=== PATIENT | male | born 1940 | race Caucasian/White ===

== ENCOUNTER 2020-07-29 20:30 | Emergency (ER) | payer BC ==
--- NOTE | 2020-07-29 20:43 | EDM.PDOC ---
ED HPI GENERAL MEDICAL PROBLEM - General Chief Complaint: Genitourinary Problem Stated Complaint: CATHETER ISSUES Time Seen by Provider: 07/29/20 20:42 Source of Information: Reports: Patient, Old Records History Limitations: Reports: No Limitations - History of Present Illness INITIAL COMMENTS - FREE TEXT/NARRATIVE: Eleno is a 79-year-old male presenting to the ED for evaluation of urinary retention. 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 He was seen in [place] by his urologist today who took his Wilson catheter out as a trial to see if he was able to void without it. The patient was last able to void around 1430 hrs. today but has been unable to pass any urine since. He comes in quite uncomfortable with bladder distention. Due to his recent surgery he has a large hematoma in the scrotum. He denies any fever, chills, nausea or vomiting, diarrhea or constipation. Other than being unable to void, he denies any urgency or frequency. Bladder Pain Score (Numeric/FACES): 2 - Related Data Allergies Allergy/AdvReac Type Severity Reaction Status Date / Time No Known Allergies Allergy Verified 07/29/20 20:47 Home Meds: Home Meds Enoxaparin [Lovenox] 40 mg SUBCUT DAILY 07/29/20 [History] ED ROS GENERAL - Review of Systems Review Of Systems: See Below Constitutional: Reports: No Symptoms HEENT: Reports: No Symptoms Respiratory: Reports: No Symptoms Cardiovascular: Reports: No Symptoms Endocrine: Reports: No Symptoms GI/Abdominal: Reports: No Symptoms : Reports: Urinary Retention, Other (Large scrotal hematoma due to recent surgery) Musculoskeletal: Reports: No Symptoms Skin: Reports: No Symptoms Neurological: Reports: No Symptoms Psychiatric: Reports: No Symptoms Hematologic/Lymphatic: Reports: No Symptoms Immunologic: Reports: No Symptoms ED EXAM, RENAL/ - Physical Exam Exam: See Below Exam Limited By: No Limitations General Appearance: Alert, Mild Distress Head: Atraumatic, Normocephalic Respiratory/Chest: No Respiratory Distress, Lungs Clear, Normal Breath Sounds Cardiovascular: Normal Peripheral Pulses, Regular Rate, Rhythm, No Murmur GI/Abdominal: Normal Bowel Sounds, Soft, Non-Tender (Male) Exam: Circumcised, Scrotal Swelling, Scrotum Tenderness (L), Scrotum Tenderness (R), Other (Very large scrotal hematoma) Back Exam: Normal Inspection, Full Range of Motion Neurological: Alert, Oriented, Normal Cognition, No Motor/Sensory Deficits Psychiatric: Normal Affect, Normal Mood Skin Exam: Warm, Dry, Intact, Wound/Incision (Central abdominal incision is clean, dry, intact.) Course - Vital Signs Last Recorded V/S: Last Vital Signs Temp 36.8 C 07/29/20 20:59 Pulse 86 07/29/20 20:59 Resp 16 07/29/20 20:59 BP 128/88 07/29/20 20:59 Pulse Ox 98 07/29/20 20:59 - Orders/Labs/Meds Orders: Active Orders 24 hr Category Date Time Status Insert Urinary Catheter [OM.PC] Q24H Care 07/29/20 20:45 Ordered Urinary Catheter Assessment [RC] ASDIRECTED Care 07/29/20 20:42 Active Meds: Medications Discontinued Medications Generic Name Dose Route Start Last Admin Trade Name Freq PRN Reason Stop Dose Admin Lidocaine HCl 10 ml 07/29/20 21:03 07/29/20 21:19 Xylocaine 2% Jelly MUCMEM 07/29/20 21:04 10 ml ONETIME ONE Administration - Re-Assessments/Exams Free Text/Narrative Re-Assessment/Exam: 07/29/20 21:42 a 16 Romanian catheter was placed into the bladder successfully with good urine output. Patient experienced relief of his urinary retention. Care of the catheter was discussed. At this time, the patient is suitable for discharge home. He is scheduled to follow-up with his primary care provider tomorrow. Departure - Departure Time of Disposition: 21:25 Disposition: Home, Self-Care 01 Clinical Impression: Acute urinary retention - Discharge Information Instructions: Indwelling Urinary Catheter Care, Adult Referrals: PCP,None [Primary Care Provider] - Forms: ED Department Discharge Care Plan Goals: Follow-up with your primary care provider or urologist as needed. Please maintain the Wilson catheter. Return to the ED should you have any difficulty emptying your bladder or the catheter is no longer functioning properly. Sepsis Event Note (ED) - Focused Exam Vital Signs: Vital Signs Temp Pulse Resp BP Pulse Ox 07/29/20 20:59 36.8 C 86 16 128/88 98 - Problem List & Annotations (1) Acute urinary retention SNOMED Code(s): 917468823 Code(s): R33.8 - OTHER RETENTION OF URINE Status: Acute Priority: Medium Current Visit: Yes - Problem List Review Problem List Initiated/Reviewed/Updated: Yes - My Orders Last 24 Hours: My Active Orders 07/29/20 20:42 Urinary Catheter Assessment [RC] ASDIRECTED 07/29/20 20:45 Insert Urinary Catheter [OM.PC] Q24H - Assessment/Plan Last 24 Hours: My Active Orders 07/29/20 20:42 Urinary Catheter Assessment [RC] ASDIRECTED 07/29/20 20:45 Insert Urinary Catheter [OM.PC] Q24H
[2020-07-29 21:00] VITALS: BP 128/88; PULSE 86
[2020-07-29] MEDS ORDERED: Lidocaine 2% Jelly 10 ML Urojet MUCMEM ONE (21:03)
== END 2020-07-29 21:48 | disposition home or self-care (01) ==
LOC: JP.ED 20:30
DX: R33.9 Retention of urine, unspecified (principal); N99.840 Postprocedural hematoma of a genitourinary system organ or structure following a genitourinary system procedure
CPT/HCPCS: 51702; 99283

== ENCOUNTER 2021-03-04 14:54 | Emergency (ER) | payer BC ==
[2021-03-04 15:11] VITALS: PULSE 63
[2021-03-04 15:51] VITALS: BP 128/79
--- NOTE | 2021-03-04 16:32 | EDM.PDOC ---
ED HPI GENERAL MEDICAL PROBLEM - General Chief Complaint: General Stated Complaint: HIGH POTASIUM PER DR Time Seen by Provider: 03/04/21 16:33 Source of Information: Reports: Patient, Old Records History Limitations: Reports: No Limitations - History of Present Illness INITIAL COMMENTS - FREE TEXT/NARRATIVE: pt has had a higher k and today it was over 6. He states that they did have a harder time drawing him at the clinic than usual. He has not been taking fluids as well as usual also. Onset: Gradual Location: Reports: Other (pt has one kidney and has a history of ca of the kidney. ) Associated Symptoms: Reports: No Other Symptoms, Other (pt does feel well. ) - Related Data Allergies Allergy/AdvReac Type Severity Reaction Status Date / Time No Known Allergies Allergy Verified 03/04/21 15:17 Home Meds: Home Meds [place]-3/DHA/Epa/Fish Oil [[place]-3 Fish Oil 1,000 MG Sfgl] 1,000 mg PO DAILY 03/04/21 [History] Past Medical History HEENT History: Reports: Hard of Hearing Psychiatric History: Reports: None Hematologic History: Reports: Blood Transfusion(s) Oncologic (Cancer) History: Reports: Bladder, Metastatic, Other (See Below) Other Oncologic History: L kidney and ureter - Infectious Disease History Infectious Disease History: Reports: Chicken Pox, Measles, Mumps - Past Surgical History HEENT Surgical History: Reports: Tonsillectomy Male Surgical History: Reports: Nephrectomy, Other (See Below) Other Male Surgeries/Procedures: l nephrectomy with uereter removal Social & Family History - Tobacco Use Tobacco Use Status *Q: Never Tobacco User - Caffeine Use Caffeine Use: Reports: Coffee - Recreational Drug Use Recreational Drug Use: No ED ROS GENERAL - Review of Systems Review Of Systems: See Below Constitutional: Reports: No Symptoms HEENT: Reports: No Symptoms Respiratory: Reports: No Symptoms Cardiovascular: Reports: No Symptoms Endocrine: Reports: No Symptoms GI/Abdominal: Reports: No Symptoms : Reports: Other (pt admits ) Musculoskeletal: Reports: No Symptoms Skin: Reports: No Symptoms Neurological: Reports: No Symptoms Psychiatric: Reports: No Symptoms ED EXAM, GENERAL - Physical Exam Exam: See Below Free Text/Narrative:: pt wasfound to have a k of greatr than 6. Pt feels well and has not had problems. Exam Limited By: No Limitations General Appearance: Alert Ears: Normal TMs Nose: Normal Inspection Throat/Mouth: Normal Inspection Head: Atraumatic Neck: Normal Inspection Respiratory/Chest: No Respiratory Distress Cardiovascular: Regular Rate, Rhythm GI/Abdominal: Soft, Non-Tender (Male) Exam: Deferred Rectal (Males) Exam: Deferred Back Exam: Normal Inspection Extremities: Normal Inspection Neurological: Alert, Oriented, Normal Cognition Psychiatric: Anxious Course - Vital Signs Last Recorded V/S: Last Vital Signs Temp 36.5 C 03/04/21 15:16 Pulse 63 03/04/21 15:51 Resp 18 03/04/21 15:16 BP 128/79 03/04/21 15:51 Pulse Ox 98 03/04/21 15:51 - Orders/Labs/Meds Orders: Active Orders 24 hr Category Date Time Status UA W/MICROSCOPIC [URIN] Urgent Lab 03/04/21 15:45 Ordered Labs: Laboratory Tests 03/04/21 03/04/21 Range/Units 15:45 16:22 Sodium 134 L (140-148) mmol/L Potassium 4.8 (3.6-5.2) mmol/L Chloride 102 (100-108) mmol/L Carbon Dioxide 25 (21-32) mmol/L Anion Gap 11.8 (5.0-14.0) mmol/L BUN 34 H (7-18) mg/dL Creatinine 1.9 H D (0.8-1.3) mg/dL Est Cr Clr Drug Dosing 16.14 mL/min Estimated GFR (MDRD) 34 L (>60) Glucose 107 H (74-106) mg/dL Calcium 8.0 L (8.5-10.1) mg/dL Urine Color Cancelled Urine Appearance Cancelled Urine pH Cancelled Ur Specific [place] Cancelled Urine Protein Cancelled Urine Glucose (UA) Cancelled Urine Ketones Cancelled Urine Occult Blood Cancelled Urine Nitrite Cancelled Urine Bilirubin Cancelled Urine Urobilinogen Cancelled Ur Leukocyte Esterase Cancelled - Re-Assessments/Exams Free Text/Narrative Re-Assessment/Exam: 03/04/21 16:40 k was repeated and found to be 4.8 He was not treated today but the k should be followed closely. He will push alot of water. Departure - Departure Time of Disposition: 16:31 Disposition: Home, Self-Care 01 Condition: Fair Clinical Impression: Dehydration - Discharge Information Referrals: PCP,None [Primary Care Provider] - Forms: ED Department Discharge Care Plan Goals: push fluids, send a copy of the electrolytes with pt. Sepsis Event Note (ED) - Focused Exam Vital Signs: Vital Signs Temp Pulse Resp BP Pulse Ox 03/04/21 15:51 63 128/79 98 03/04/21 15:16 36.5 C 63 18 129/68 99 03/04/21 15:09 36.5 C 63 18 129/68 99 - My Orders Last 24 Hours: My Active Orders 03/04/21 15:45 UA W/MICROSCOPIC [URIN] Urgent - Assessment/Plan Last 24 Hours: My Active Orders 03/04/21 15:45 UA W/MICROSCOPIC [URIN] Urgent
== END 2021-03-04 17:15 | disposition home or self-care (01) ==
LOC: JP.ED 14:54
DX: E86.0 Dehydration (principal)
CPT/HCPCS: 36415; 80048; 81001; 99283; 99284

== ENCOUNTER 2021-04-04 14:36 | Emergency (ER) | payer BC ==
[2021-04-04 14:50] VITALS: BP 125/77; PULSE 79
--- NOTE | 2021-04-04 15:37 | EDM.PDOC ---
ED HPI GENERAL MEDICAL PROBLEM - General Chief Complaint: Respiratory Problem Stated Complaint: PAIN LEFT SIDE RIBCAGE (LUNG) Time Seen by Provider: 04/04/21 15:20 Source of Information: Reports: Patient, Old Records History Limitations: Reports: No Limitations - History of Present Illness INITIAL COMMENTS - FREE TEXT/NARRATIVE: 80 yo male is being managed by oncology at for metastatic renal CA. He has known liver mets. He went to the clinic today for about 4 d of intermittent low grade fevers managed with acetaminophen and mild dyspnea, especially with exertion. In the local [facility] he was found to have a large L pleural effusion and sent to the ER. A CBC there showed a normal WBC ct of 7.9. Is being treated with Keytruda infusions. Sees Dr. April Amezcua. Onset: Gradual Duration: Day(s):, Getting Worse Location: Reports: Chest Quality: Reports: Other (pain is not reported) Severity: Mild Improves with: Reports: None Worsens with: Reports: Other (time, exertion) Context: Reports: Other (See HPI) Associated Symptoms: Reports: Fever/Chills (? low grade intermittently), Shortness of Breath Treatments AUTHORIZATION MANAGER: Reports: Acetaminophen - Related Data Allergies Allergy/AdvReac Type Severity Reaction Status Date / Time No Known Allergies Allergy Verified 04/04/21 14:53 Home Meds: Home Meds [place]-3/DHA/Epa/Fish Oil [[place]-3 Fish Oil 1,000 MG Sfgl] 1,000 mg PO DAILY 03/04/21 [History] Past Medical History HEENT History: Reports: Hard of Hearing Respiratory History: Reports: Other (See Below) Other Respiratory History: fluid on left lung Genitourinary History: Reports: Other (See Below) Other Genitourinary History: only has right kidney Musculoskeletal History: Reports: Arthritis, Gout Psychiatric History: Reports: None Hematologic History: Reports: Blood Transfusion(s) Oncologic (Cancer) History: Reports: Bladder, Metastatic, Other (See Below) Other Oncologic History: L kidney and ureter - Infectious Disease History Infectious Disease History: Reports: Chicken Pox, Measles, Mumps - Past Surgical History HEENT Surgical History: Reports: Tonsillectomy Respiratory Surgical History: Reports: None Male Surgical History: Reports: Nephrectomy, Other (See Below) Other Male Surgeries/Procedures: l nephrectomy with uereter removal Musculoskeletal Surgical History: Reports: None Oncologic Surgical History: Reports: Other (See Below) Other Oncologic Surgeries/Procedures: left kidney removed. resection wall of bladder Social & Family History - Tobacco Use Tobacco Use Status *Q: Never Tobacco User - Caffeine Use Caffeine Use: Reports: Coffee, Tea - Recreational Drug Use Recreational Drug Use: No ED ROS GENERAL - Review of Systems Review Of Systems: See Below Constitutional: Reports: Fever, Chills HEENT: Reports: No Symptoms Respiratory: Reports: Shortness of Breath Cardiovascular: Reports: No Symptoms GI/Abdominal: Reports: No Symptoms : Reports: No Symptoms Musculoskeletal: Reports: No Symptoms Skin: Reports: No Symptoms ED EXAM, GENERAL - Physical Exam Exam: See Below Exam Limited By: No Limitations General Appearance: Alert, WD/WN, No Apparent Distress Eye Exam: Bilateral Eye: Normal Inspection Ears: Normal External Exam, Normal Canal, Hearing Grossly Normal Ear Exam: Bilateral Ear: Auricle Normal, Canal Normal Nose: Normal Inspection, No Blood Throat/Mouth: Normal Inspection, Normal Lips, Normal Oropharynx, Normal Voice, No Airway Compromise Head: Atraumatic, Normocephalic Neck: Normal Inspection Respiratory/Chest: No Respiratory Distress, Decreased Breath Sounds (lower 2/3 of his L lung is without BS and dull to percussion) Cardiovascular: Regular Rate, Rhythm, No Edema Back Exam: Normal Inspection. No: CVA Tenderness (R), CVA Tenderness (L) Extremities: Normal Inspection, Normal Range of Motion, Non-Tender, No Pedal Edema Neurological: Alert, Oriented, CN II-XII Intact, Normal Cognition, No Motor/Sensory Deficits Psychiatric: Normal Affect, Normal Mood Skin Exam: Warm, Dry, Intact, Normal Color, No Rash Course - Vital Signs Text/Narrative:: Case discussed with [facility] @ 1610h Last Recorded V/S: Last Vital Signs Temp 36.9 C 04/04/21 14:48 Pulse 79 04/04/21 14:48 Resp 18 04/04/21 14:48 BP 125/77 04/04/21 14:48 Pulse Ox 94 L 04/04/21 14:48 - Orders/Labs/Meds Orders: Active Orders 24 hr Category Date Time Status Chest wo Cont [CT] Stat Exams 04/04/21 16:39 Taken - Radiology Interpretation Free Text/Narrative:: Chest CT scan without contrast- IMPRESSION: Large, partially loculated simple left pleural effusion. Consider repeat CT after resolution of effusion to exclude underlying mass or infiltrate. Bilateral gynecomastia. Please note that all CT scans at this facility use dose modulation, iterative reconstruction, and/or weight-based dosing when appropriate to reduce radiation dose to as low as reasonably achievable. Dictated by Arlette Wisdom MD @ 04/04/2021 5:54:[address] Results Date: 04/04/21 Departure - Departure Time of Disposition: 17:59 Disposition: Home, Self-Care 01 Condition: Fair Clinical Impression: Pleural effusion, left Metastatic renal cell carcinoma Qualifiers: Laterality: unspecified laterality Qualified Code(s): C64.9 - Malignant neoplasm of unspecified kidney, except renal pelvis - Discharge Information *PRESCRIPTION DRUG MONITORING PROGRAM REVIEWED*: Not Applicable *COPY OF PRESCRIPTION DRUG MONITORING REPORT IN PATIENT LEANDRO: Not Applicable Referrals: Arlette Castro MD [Primary Care Provider] - Forms: ED Department Discharge Additional Instructions: There was no CT evidence of infection today. If you are clearly running a fever over the weekend you should consider returning for further work up. We are going to need you to return Wednesday for a pleural tap to remove the excess lung fluid. This fluid very likely will return in the not too distant future. Keep or move up your oncology appt if possible. Sepsis Event Note (ED) - Evaluation Sepsis Screening Result: No Definite Risk - Focused Exam Vital Signs: Vital Signs Temp Pulse Resp BP Pulse Ox 04/04/21 14:48 36.9 C 79 18 125/77 94 L - My Orders Last 24 Hours: My Active Orders 04/04/21 16:39 Chest wo Cont [CT] Stat - Assessment/Plan Last 24 Hours: My Active Orders 04/04/21 16:39 Chest wo Cont [CT] Stat
--- NOTE | 2021-04-04 17:55 | CRLCT ---
For Patients: As a result of the Century Cures Act, medical imaging exams and procedure reports are released immediately into your electronic medical record. You may view this report before your referring provider. If you have questions, please contact your health care provider. INDICATION: Left pleural effusion TECHNIQUE: CT chest without contrast. COMPARISON: Chest radiograph from earlier today FINDINGS: Cardiovascular structures: Heart size is normal. Thoracic aorta and main pulmonary artery are normal in caliber. Mediastinum and toribio: No sign of mass or adenopathy. Lungs: Compressive atelectasis in the left lung. Linear scarring or atelectasis in the lateral aspect of the right middle lobe. Pleura and pericardium: Large, partially loculated left pleural effusion measuring 12 Hounsfield units in density. Chest wall and axilla: Bilateral gynecomastia. Upper abdomen: Unremarkable. Bones: No significant findings. No suspicious osseous lesions. IMPRESSION: Large, partially loculated simple left pleural effusion. Consider repeat CT after resolution of effusion to exclude underlying mass or infiltrate. Bilateral gynecomastia. Please note that all CT scans at this facility use dose modulation, iterative reconstruction, and/or weight-based dosing when appropriate to reduce radiation dose to as low as reasonably achievable. Dictated by Arlette Wisdom MD @ 04/04/2021 5:54:17 PM (Electronically Signed)
== END 2021-04-04 18:14 | disposition home or self-care (01) ==
LOC: JP.ED 14:36
DX: C64.9 Malignant neoplasm of unspecified kidney, except renal pelvis (principal); J90 Pleural effusion, not elsewhere classified
CPT/HCPCS: 71250; 99284-25

== ENCOUNTER 2021-10-13 12:36 | Inpatient (IN) | payer MEDICARE, BC ==
[2021-10-13] MEDS ORDERED: Sodium Chloride 0.9% 1,000 ML IV ONE (13:54)
[2021-10-13] MEDS ORDERED: Albuterol 0.083% 2.5 MG/3 ML Neb Soln NEB PRN (13:54)
[2021-10-13] MEDS ORDERED: HYDROmorphone 1 MG/ML Syringe IVPUSH PRN (13:54)
[2021-10-13] MEDS ORDERED: LORazepam 2 MG/ML SDV IVPUSH PRN (13:54)
[2021-10-13] MEDS ORDERED: Ondansetron 4 MG/2 ML SDV IV PRN (13:54)
[2021-10-13] MEDS ORDERED: HYDROmorphone 0.5 MG/0.5 ML Syringe IVPUSH PRN (14:02)
[2021-10-13] MEDS ORDERED: Dextrose 5%-Lactated Ringers 1,000 ML IV SCH (14:30)
[2021-10-13] MEDS: Pantoprazole 40 MG Vial IV SCH (16:20)
[2021-10-13 16:49] LABS: CORONAVIRUS COVID-19 NAA NEGATIVE (NEGATIVE)
[2021-10-13] MEDS: Acetaminophen 325 MG Tab PO PRN ×3 (16:54→22:33)
[2021-10-14] MEDS: Melatonin 3 MG Tab PO PRN ×2 (00:06→20:56)
[2021-10-14] MEDS: Piperacillin/Tazobactam/Dext 2.25 GM in Premix Bag 1 BAG IV SCH ×2 (10:21→17:28)
[2021-10-14] MEDS: Pantoprazole 40 MG Vial IV SCH (15:48)
[2021-10-14] MEDS: Acetaminophen 325 MG Tab PO PRN ×2 (19:32→23:26)
[2021-10-15] MEDS: Piperacillin/Tazobactam/Dext 2.25 GM in Premix Bag 1 BAG IV SCH ×3 (00:52→16:35)
[2021-10-15] MEDS: oxyCODONE 5 MG Tab PO PRN ×3 (05:54→22:46)
[2021-10-15] MEDS: Ondansetron 4 MG Tab.DIS PO PRN (16:21)
[2021-10-15] MEDS: Dextrose 5%-Lactated Ringers 1,000 ML IV SCH (17:28)
[2021-10-15] MEDS: Magnesium Hydroxide 400 MG/5 ML Susp 30 ML Cup PO PRN (17:42)
[2021-10-16] MEDS: Piperacillin/Tazobactam/Dext 2.25 GM in Premix Bag 1 BAG IV SCH ×3 (00:32→17:23)
[2021-10-16] MEDS: oxyCODONE 5 MG Tab PO PRN (04:08)
[2021-10-16] MEDS: Dextrose 5%-Lactated Ringers 1,000 ML IV SCH (07:46)
[2021-10-16] MEDS: HYDROmorphone 2 MG Tab PO PRN ×2 (09:26→20:08)
[2021-10-16] MEDS: Magnesium Hydroxide 400 MG/5 ML Susp 30 ML Cup PO PRN (19:55)
[2021-10-16] MEDS: Melatonin 3 MG Tab PO PRN (21:53)
[2021-10-17] MEDS: Dextrose 5%-Lactated Ringers 1,000 ML IV SCH ×2 (01:17→15:46)
[2021-10-17] MEDS: Piperacillin/Tazobactam/Dext 2.25 GM in Premix Bag 1 BAG IV SCH ×2 (01:36→08:02)
[2021-10-17] MEDS: HYDROmorphone 2 MG Tab PO PRN ×3 (04:05→22:47)
[2021-10-17] MEDS ORDERED: Bisacodyl 5 MG Tab PO ONE (12:00)
[2021-10-17] MEDS ORDERED: Bisacodyl 10 MG Supp RECTAL ONE (12:00)
[2021-10-17] MEDS: Cefdinir 300 MG Cap PO SCH (16:40)
[2021-10-17] MEDS: Ondansetron 4 MG Tab.DIS PO PRN (17:03)
[2021-10-17] MEDS: Melatonin 3 MG Tab PO PRN (22:48)
[2021-10-18] MEDS: Dextrose 5%-Lactated Ringers 1,000 ML IV SCH (05:12)
[2021-10-18] MEDS: HYDROmorphone 2 MG Tab PO PRN ×2 (06:15→12:42)
[2021-10-18] MEDS: Ondansetron 4 MG Tab.DIS PO PRN (13:35)
[2021-10-18 15:29] VITALS: BP 91/57; PULSE 85
[2021-10-18] MEDS: Cefdinir 300 MG Cap PO SCH (16:24)
== END 2021-10-18 17:00 | disposition hospice, home (50) | DRG 683 ==
LOC: JP.ICU 12:36
PROVIDERS: ADMIT Internal Medicine; ATTEND Internal Medicine
PROC: 30233N1 Transfusion of Nonautologous Red Blood Cells into Peripheral Vein, Percutaneous Approach (ICD-10-PCS; principal; 2021-10-13)
DX: N17.9 Acute kidney failure, unspecified (principal); C78.7 Secondary malignant neoplasm of liver and intrahepatic bile duct; K81.9 Cholecystitis, unspecified; C67.9 Malignant neoplasm of bladder, unspecified; N18.5 Chronic kidney disease, stage 5; D63.1 Anemia in chronic kidney disease; R10.11 Right upper quadrant pain; Z66 Do not resuscitate; M19.90 Unspecified osteoarthritis, unspecified site; N40.0 Benign prostatic hyperplasia without lower urinary tract symptoms; F32.A Depression, unspecified; Z20.822 Contact with and (suspected) exposure to COVID-19; Z98.49 Cataract extraction status, unspecified eye; Z86.718 Personal history of other venous thrombosis and embolism
CPT/HCPCS: 0241U; 36415; 36430; 74176; 74176-26; 74181; 76705; 80053; 81001; 83735; 84100; 84145; 85018; 85027; 86850; 86900; 86901; 86920; 86922; 93971-26-LT; 93971-LT; 97110-GP; 97116-GP; 97163-GP; 97530-GP; 97535-GP; A9270-GY; C9113; J2405; J2543; J7030; J7121; P9016; Q0162